=== PATIENT | female | born 1980 | race Two or more races ===

== ENCOUNTER 2017-02-22 17:16 | Emergency (ER) | payer SELFPAY ==
[~2017-02-22] VITALS: Ht 154.9 cm; Wt 72.6 kg
[~2017-02-22 17:16] MED LIST: NKM
[2017-02-22 18:00] VITALS: BP 112/37
[2017-02-22] MEDS ORDERED: Metoclopramide 10mg/2ml Inj IVP ONE (18:00)
[2017-02-22] MEDS ORDERED: Ketorolac 30mg Inj IV ONE (18:00)
[2017-02-22 18:08] LABS: BASOPHILS % (AUTO) 1.9 % (0.0-2.0); EOSINOPHILS % (AUTO) 2.1 % (0.0-3.0); HEMATOCRIT 41.9 % (37.0-47.0); HEMOGLOBIN 12.4 G/DL (12.0-16.0); LYMPHOCYTES % (AUTO) 38.1 % (20.0-45.0); MEAN CORPUSCULAR VOLUME 89 FL (80-99); MONOCYTES % (AUTO) 6.6 % (1.0-10.0); NEUTROPHILS % (AUTO) 51.3 % (45.0-75.0); PLATELET COUNT 283 K/UL (150-450); RED BLOOD COUNT 4.73 M/UL (4.20-5.40); RED CELL DISTRIBUTION WIDTH 13.5 % (11.6-14.8); WHITE BLOOD COUNT 6.4 K/UL (4.8-10.8)
[2017-02-22 18:16] LABS: ANION GAP 8 mmol/L (5-15); BLOOD UREA NITROGEN 15 mg/dL (7-18); CALCIUM 8.2 MG/DL (8.5-10.1); CARBON DIOXIDE 27 MMOL/L (21-32); CHLORIDE 103 MMOL/L (98-107); CREATININE 1.1 MG/DL (0.55-1.30); POTASSIUM 4.7 MMOL/L (3.5-5.1); SODIUM 138 MMOL/L (136-145)
[2017-02-22 18:20] LABS: ALANINE AMINOTRANSFERASE 18 U/L (12-78); ALBUMIN 3.9 G/DL (3.4-5.0); ALBUMIN/GLOBULIN RATIO 0.9 (1.0-2.7); ALKALINE PHOSPHATASE 97 U/L (46-116); ASPARTATE AMINO TRANSFERASE 35 U/L (15-37); BILIRUBIN,TOTAL 0.3 MG/DL (0.2-1.0)
[2017-02-22] MEDS ORDERED: Morphine Sulfate 4mg/ml Inj IVP ONE (18:30)
[2017-02-22 20:09] VITALS: BP 118/57
--- NOTE | 2017-02-23 10:56 | Diagnostic Imaging Report ---
Indication: Elbow pain Technique: CT of the abdomen and pelvis utilizing automated exposure control without contrast. CT dose: Total DLP 894.18 mGycm; CTDI vol 17.05 mGy Comparison: 07/26/2015 Findings: Please note that evaluation of the abdominal and pelvic viscera is limited without the use of intravenous and oral contrast. Within these limitations, the following observations are made: Mild dependent atelectasis noted in the lung bases. Heart size within normal limits. There is no pericardial effusion. Noncontrast evaluation of the liver, gallbladder, spleen, adrenal glands and pancreas is grossly unremarkable. Kidneys are symmetric in size. No urinary tract stone or hydronephrosis is seen bilaterally. Bladder is unremarkable in appearance. Uterus and adnexa are grossly unremarkable for noncontrast evaluation. There is no bowel obstruction. No free intraperitoneal air or fluid. No appreciable focal or diffuse abnormal bowel wall thickening. Appendix is not definitively visualized however there is no focal inflammatory change in the right lower quadrant to suggest acute appendicitis. Moderate stool is noted within the colon. Abdominal aorta is normal in caliber. No acute osseous abnormality is seen. There is a tiny fat-containing umbilical hernia. Impression: Limited exam without intravenous or oral contrast. No definite evidence of acute intra-abdominal pathology. Appendix not definitively visualized however no focal inflammatory changes noted in the right lower quadrant suggest acute appendicitis. Consider more sensitive evaluation with contrast-enhanced exam as clinically indicated. Moderate stool noted within the colon, question constipation. Additional findings as above. The CT scanner at [facility] is accredited by the [employer] and the scans are performed using protocols designed to limit radiation exposure to as low as reasonably achievable to attain images of sufficient resolution adequate for diagnostic evaluation.
--- NOTE | 2017-02-24 07:36 | Emergency Room Report ---
History of Present Illness General Chief Complaint: Vomiting Source: Patient Present Illness HPI Patient present with complaints of diffuse abdominal pain bilateral flank pain Mainly on the right side Reports that she was diagnosed with bladder infection recently But this does not feel like that patient also reports previous kidney stone which also was somewhat different patient reports vomiting and diarrhea Denies any fevers denies any neck pain or photophobia Pain is 8/10 Lower back region and also flank region again bilaterally No change with position Allergies: Coded Allergies: IBUPROFEN (Verified Allergy, Unknown, 02/22/17) Patient History Past Medical History: see triage record Pertinent Family History: none Reviewed Nursing Documentation: PMH: Agreed, PSxH: Agreed Nursing Documentation-PMH Hx Cardiac Problems: No - OVARIAN CYST Review of Systems All Other Systems: negative except mentioned in HPI Physical Exam Vital Signs Date Time Temp Pulse Resp B/P (MAP) Pulse Ox O2 Delivery O2 Flow Rate FiO2 02/22/17 17:48 98.1 117 20 112/37 99 Room Air Sp02 EP Interpretation: reviewed, normal General Appearance: mild distress - Patient initially presents somewhat histrionic agitated Head: normocephalic, atraumatic Eyes: bilateral eye PERRL, bilateral eye EOMI ENT: hearing grossly normal, normal pharynx, TMs + canals normal, uvula midline Neck: full range of motion, supple, no meningismus, no bony tend Respiratory: lungs clear, normal breath sounds, no rhonchi, no respiratory distress, no retraction, no accessory muscle use Cardiovascular #1: normal peripheral pulses, regular rate, rhythm, no edema, no gallop, no JVD, no murmur Gastrointestinal: normal bowel sounds, non tender - No focal point of discomfort however patient is diffusely uncomfortable subjectively, soft, no mass, no organomegaly, non-distended, no guarding, no hernia, no pulsatile mass , no rebound Genitourinary: no CVA tenderness Musculoskeletal: normal inspection Neurologic: oriented x3, responsive, 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, motor strength/ tone normal, sensory intact Psychiatric: anxious Skin: normal color, no rash, warm/dry, palpation normal Lymphatic: normal inspection, no adenopathy Medical Decision Making Diagnostic Impression: Primary Impression: Abdominal pain in female ER Course With the patient's history and examination, multiple differentials considered, including but not limited to , ectopic , ovarian torsion, gastritis, cholecystitis, pancreatitis, appendicitis Patient had blood work and imaging obtained patient was given pain medication Initially Toradol was written given the patient's possible kidney stone however the patient reported allergy to Motrin Patient refusing Tylenol Received morphine CT imaging and blood work do not reveal any obvious acute pathology The etiology of the discomfort is unclear however I did not feel the patient met inpatient requirements, I also did not feel comfortable with further opiate medication and the patient is stable for close followup, Please note that upon going to disposition the patient was told the patient, had left prior to receiving paperwork and final discussion, patient requested morphine which was being held until reevaluation, and reported to the nurse that she was leaving after not receiving the medication Labs Test 02/22/17 17:55 02/22/17 19:21 White Blood Count 6.4 K/UL (4.8-10.8) Red Blood Count 4.73 M/UL (4.20-5.40) Hemoglobin 12.4 G/DL (12.0-16.0) Hematocrit 41.9 % (37.0-47.0) Mean Corpuscular Volume 89 FL (80-99) Mean Corpuscular Hemoglobin 26.1 PG (27.0-31.0) Mean Corpuscular Hemoglobin Concent 29.5 G/DL (32.0-36.0) Red Cell Distribution Width 13.5 % (11.6-14.8) Platelet Count 283 K/UL (150-450) Mean Platelet Volume 8.2 FL (6.5-10.1) Neutrophils (%) (Auto) 51.3 % (45.0-75.0) Lymphocytes (%) (Auto) 38.1 % (20.0-45.0) Monocytes (%) (Auto) 6.6 % (1.0-10.0) Eosinophils (%) (Auto) 2.1 % (0.0-3.0) Basophils (%) (Auto) 1.9 % (0.0-2.0) Sodium Level 138 MMOL/L (136-145) Potassium Level 4.7 MMOL/L (3.5-5.1) Chloride Level 103 MMOL/L (98-107) Carbon Dioxide Level 27 MMOL/L (21-32) Anion Gap 8 mmol/L (5-15) Blood Urea Nitrogen 15 mg/dL (7-18) Creatinine 1.1 MG/DL (0.55-1.30) Estimat Glomerular Filtration Rate 56.5 mL/min (>60) Glucose Level 101 MG/DL (74-106) Calcium Level 8.2 MG/DL (8.5-10.1) Total Bilirubin 0.3 MG/DL (0.2-1.0) Aspartate Amino Transf (AST/SGOT) 35 U/L (15-37) Alanine Aminotransferase (ALT/SGPT) 18 U/L (12-78) Alkaline Phosphatase 97 U/L (46-116) Total Protein 8.3 G/DL (6.4-8.2) Albumin 3.9 G/DL (3.4-5.0) Globulin 4.4 g/dL Albumin/Globulin Ratio 0.9 (1.0-2.7) Lipase 211 U/L (73-393) Human Chorionic Gonadotropin, Quant < 1 mIU/mL (1-6) CT/MRI/US Diagnostic Results CT/MRI/US Diagnostic Results : Impression CT abdomen pelvisImpression: Limited exam without intravenous or oral contrast. No definite evidence of acute intra-abdominal pathology. Appendix not definitively visualized however no focal inflammatory changes noted in the right lower quadrant suggest acute appendicitis. Consider more sensitive evaluation with contrast-enhanced exam as clinically indicated. Moderate stool noted within the colon, question constipation. Additional findings as above. Last Vital Signs Date Time Temp Pulse Resp B/P (MAP) Pulse Ox O2 Delivery O2 Flow Rate FiO2 02/22/17 20:09 14 118/57 99 Room Air 02/22/17 18:00 98.1 02/22/17 17:48 117 Status: improved Disposition: HOME, SELF-CARE Condition: Stable Additional Instructions: Patient is provided with the discharge instructions notified to follow up with primary doctor in the next 2-3 days otherwise return to the er with any worsening symptoms. Please note that this report is being documented using [employer] technology. This can lead to erroneous entry secondary to incorrect interpretation by the dictating instrument. FABIOLA GREENWOOD D.O. Feb 24, 2017 07:36
== END 2017-02-22 20:09 | disposition home or self-care (01) ==
LOC: EMR 18:20
DX: R10.9 Unspecified abdominal pain (principal); R11.10 Vomiting, unspecified; Z87.442 Personal history of urinary calculi; Z88.6 Allergy status to analgesic agent
CPT/HCPCS: 36415; 74176; 80053; 83690; 84702; 85025; 96374; 96375; 99284; J1885; J2270; J2405; J2765